=== PATIENT | male | born 1960 | race Caucasian/White ===

== ENCOUNTER → 2016-06-26 | Outpatient (CLI) | payer BC ==
[~2016-06-26] MED LIST: Iopamidol 755 MG/ML 500 ML Multipack Bottle IVPUSH STA
--- NOTE | 2016-06-26 11:17 | CT ---
CT of the abdomen and pelvis with and without contrast. HISTORY: Pain TECHNIQUE: Axial CT images were obtained of the abdomen and pelvis without and following the adminis tration of 50 mL of Isovue-370. Coronal and sagittal reconstructions obtained. FINDINGS: The lung bases are clear, no pleural effusion. Coronary artery calcifications are noted. There is mild to moderate fatty infiltration of the liver. There is stable nodular thickening of the adrenal glands bilaterally. The spleen and pancreas appear grossly normal. The gallbladder appears normal. There is no bulky retroperitoneal lymphadenopathy. No abdominal ascites. There is a small h iatal hernia. Left nephrectomy changes are noted. No evidence of recurrent malignancy. No obstructive uropathy on the right. There is a punctate nonobstructing stone noted. The large and small bowel are normal in caliber without evidence of obstruction. The appendix appear s normal. Diverticulosis without evidence of diverticulitis. There is no bulky pelvic lymphadenopath y. No free fluid. No free air. The bladder nicole appear diffusely thickened however the bladder is m inimally filled. The visualized osseous structures appear normal. There is a tiny fat-containing ing uinal hernia. IMPRESSION: 1. Left nephrectomy changes without evidence of recurrent or metastatic disease. 2. Stable small adrenal nodules. 3. Mild to moderate fatty infiltration of the liver. 4. Diverticulosis without evidence of diverticulitis. 5. Punctate nonobstructing right renal stone.
== END ==
LOC: MW.DI 08:27
PROVIDERS: ATTEND Urology
DX: C64.9 Malignant neoplasm of unspecified kidney, except renal pelvis (principal); Z90.5 Acquired absence of kidney; E27.8 Other specified disorders of adrenal gland; K76.0 Fatty (change of) liver, not elsewhere classified; K57.90 Diverticulosis of intestine, part unspecified, without perforation or abscess without bleeding; N20.0 Calculus of kidney
CPT/HCPCS: 74178; Q9967

== ENCOUNTER 2016-09-08 09:47 | Day surgery (SDC) | payer BC ==
[~2016-09-08 09:47] MED LIST changes: -Iopamidol 755 MG/ML 500 ML Multipack Bottle IVPUSH STA; +Lactated Ringers 1,000 ML IV SCH; +Midazolam 1 MG/ML 2 ML SDV ONE; +Propofol 200 MG/20 ML SDV ONE; +fentaNYL 100 MCG/2 ML SDV ONE
--- NOTE | 2016-09-08 10:20 | PCM.PREANE ---
Preanesthetic Assessment - Anesthesia/Transfusion/Family Hx Anesthesia History: Prior Anesthesia Without Reaction Family History of Anesthesia Reaction: No Transfusion History: No Prior Transfusion(s) Intubation History: Unknown - Review of Systems General: No Symptoms Pulmonary: No Symptoms Cardiovascular: No Symptoms Gastrointestinal: No symptoms Neurological: No Symptoms Other: Reports: None - Physical Assessment Height: 1.73 m Weight: 105.233 kg ASA Class: 3 Mental Status: Alert & Oriented x3 Airway Class: Mallampati = 2 Dentition: Reports: Edentulous Thyro-Mental Finger Breadths: 3 Mouth Opening Finger Breadths: 3 ROM/Head Extension: Full Lungs: Clear to auscultation, Normal respiratory effort Cardiovascular: Regular Rate, Regular Rhythm - Allergies Allergies/Adverse Reactions: Allergies Allergy/AdvReac Type Severity Reaction Status Date / Time Penicillins Allergy Rash Verified 11/23/15 22:03 - Blood Blood Available: No - Anesthesia Plan Pre-Op Medication Ordered: None - Acknowledgements Anesthesia Type Planned: MAC Pt an Appropriate Candidate for the Planned Anesthesia: Yes Alternatives and Risks of Anesthesia Discussed w Pt/Guardian: Yes Pt/Guardian Understands and Agrees with Anesthesia Plan: Yes PreAnesthesia Questionnaire HEENT History: Reports: Other (See Below) Other HEENT History: no teeth Cardiovascular History: Reports: High Cholesterol, Hypertension, [place], Stents (x4 5 years ago) Gastrointestinal History: Reports: GERD Genitourinary History: Reports: BPH, Prostate Disorder Other Genitourinary History: renal and prostate cancer Musculoskeletal History: Reports: Back Pain, Chronic Neurological History: Reports: Neuropathy, Peripheral Psychiatric History: Reports: Anxiety Endocrine/Metabolic History: Reports: Diabetes, Type II, Obesity/BMI 30+ Oncologic (Cancer) History: Reports: Prostate, Renal - Infectious Disease History Infectious Disease History: Reports: Chicken Pox, Measles, Mumps - Past Surgical History Head Surgeries/Procedures: Reports: None HEENT Surgical History: Reports: Other (See Below) Other HEENT Surgeries/Procedures: corneal transplant Cardiovascular Surgical History: Reports: Coronary Artery Stent GI Surgical History: Reports: Hernia, Inguinal Male Surgical History: Reports: Nephrectomy Other Male Surgeries/Procedures: left nephrectomy for renal cancer - SUBSTANCE USE Smoking Status *Q: Current Every Day Smoker (2 ppd) Days Per Week of Alcohol Use: 1 Number of Drinks Per Day: 12 Total Drinks Per Week: 12 Recreational Drug Use History: Yes Recreational Drug Type: Reports: Marijuana/Hashish Recreational Drug Last Use: last smoked marijuana 09/03/16 - HOME MEDS Home Medications: Home Meds Aspirin [Halfprin] 1 tab PO DAILY 11/23/15 [History] Cyclobenzaprine [Flexeril] 10 mg PO ASDIRECTED PRN 11/23/15 [History] LORazepam 1 tab PO BEDTIME 11/23/15 [History] Losartan/Hydrochlorothiazide [Losartan-HCTZ 100-25 MG] 1 tab PO DAILY 11/23/15 [ History] Rosuvastatin [Crestor] 10 mg PO DAILY 11/23/15 [History] SitaGLIPtin [Januvia] 100 mg PO DAILY 11/23/15 [History] Tamsulosin HCl [Flomax] 0.4 mg PO DAILY 09/03/16 [History] amLODIPine [Norvasc] 5 mg PO DAILY 09/03/16 [History] - CURRENT (IN HOUSE) MEDS Current Meds: Current Medications Lactated Ringer's (Ringers, Lactated) 1,000 mls @ 125 mls/hr IV ASDIRECTED SONU Discontinued Medications Fentanyl (Sublimaze) Confirm Administered Dose 100 mcg .ROUTE .STK-MED ONE Stop: 09/08/16 08:26 Midazolam HCl (Versed 1 Mg/Ml) Confirm Administered Dose 2 mg .ROUTE .STK-MED ONE Stop: 09/08/16 08:27 Propofol (Diprivan 20 Ml) Confirm Administered Dose 200 mg .ROUTE .STK-MED ONE Stop: 09/08/16 08:26
[2016-09-08] MEDS ORDERED: Propofol 200 MG/20 ML SDV ONE (10:39)
--- NOTE | 2016-09-08 11:14 | PCM.OPNOTE ---
- General Post-Op/Procedure Note Date of Surgery/Procedure: 09/08/16 Operative Procedure(s): colonoscopy w snare polypectomy Findings: see dict [id number] Pre Op Diagnosis: scrn colonoscopy Post-Op Diagnosis: Same Anesthesia Technique: Moderate Sedation Primary Surgeon: Harvey Proctor Pathology: 4 small sessile polyp, size 2 mm, at distance 20cm when scope went in; 8 mm sessile polyp at 50 cm when scope went in Complications: None Condition: Good
[2016-09-08 13:00] VITALS: BP 120/79
--- NOTE | 2016-09-08 15:35 | OR ---
SURGEON: Harvey Proctor MD DATE OF PROCEDURE: 09/08/2016 PREOPERATIVE DIAGNOSIS: Screening colonoscopy. POSTOPERATIVE DIAGNOSES: Colon poly and diverticulosis. PROCEDURE PERFORMED: Colonoscopy with snare polypectomy COMPLICATIONS: None. DESCRIPTION OF PROCEDURE: The patient was taken to the endoscopy room. A time out was called, patient identified, and procedure identified. Diprivan was then administrated. Patient went from awake to sleep, hearing doctor talking or door closing is normal. Perineum inspection and digital examination were then performed. A well- lubricated colonoscope was gently inserted through the rectum, advanced past the rectosigmoid junction, the descending colon, splenic flexure, transverse colon, hepatic flexure, ascending colon, arrived to the cecum. Cecum was identified as dictated in the finding. Then the scope was carefully withdrawn while attention was paid to the mucosal surface for any abnormality. Air will be sucked out during the scope withdrawal. At the rectum, retroflexed to examine any rectal diseases, fistula or hemorrhoids. During mucosal examination, abnormality or polyp encountered. Using snare equipment, the abnormality or the polyp was then snared off using electrocautery. The Patient tolerated procedure well. There were no intraoperative complications, and Dr. Proctor was present throughout the whole procedure. FINDINGS: 1. The patient is easily sedated with AIRPLANE PATROL PILOT and Diprivan. The patient is soundly snoring. 2. The patient's bowel prep was average with some stool ball, and some semi- formed liquid stool. Colon is rather straight forward. Cecum indicated by ileocecal fold, one-to-one indentation, appendiceal orifice, and light emittance is not observed. Mucosa examined upon scope pulling out. The patient has quite a lot of polyp and a lot of them are 2 to 3 mm sessile polyp at distance of 20 cm when scope go in, that was removed with both hot snare and cold biopsy forceps, and at distance 50 when the scope go in, there is a slightly larger polyp around like about 8 mm sessile polyp, and removed with snare polypectomy distance 50 cm when scope go in. The patient also have quite a lot of diverticulosis. No signs or symptoms of diverticulitis at both the left colon and the right colon. The left colon has more, right colon has less, transverse colon does not have any. The patient does have a mild internal hemorrhoids and no external hemorrhoids. The patient will benefit from repeat colonoscopy 3 years from today or if clinically indicated otherwise, and if the polyp pathology indicated otherwise. As always, thank you for the kind referral. NANDINI / STEFFANIE /[id number]
== END 2016-09-08 11:50 | disposition home or self-care (01) ==
LOC: MW.SDS 09:47
PROVIDERS: ATTEND Surgery
PROC: 0DBE8ZX Excision of Large Intestine, Via Natural or Artificial Opening Endoscopic, Diagnostic (ICD-10-PCS; principal; 2016-09-08)
PROC: 0DBE8ZX Excision of Large Intestine, Via Natural or Artificial Opening Endoscopic, Diagnostic (ICD-10-PCS; 2016-09-08)
PROC: 0DBE8ZX Excision of Large Intestine, Via Natural or Artificial Opening Endoscopic, Diagnostic (ICD-10-PCS; 2016-09-08)
DX: Z12.11 Encounter for screening for malignant neoplasm of colon (principal); D12.6 Benign neoplasm of colon, unspecified; K63.5 Polyp of colon; K57.30 Diverticulosis of large intestine without perforation or abscess without bleeding; K64.8 Other hemorrhoids; Z88.0 Allergy status to penicillin; Z79.82 Long term (current) use of aspirin; Z79.899 Other long term (current) drug therapy; I25.2 Old myocardial infarction; F17.210 Nicotine dependence, cigarettes, uncomplicated
CPT/HCPCS: 45380; 45384; 45385; 88305; J2250; J3010; J7120; 00810; J2704

== ENCOUNTER 2021-06-24 22:06 | Inpatient (IN) | payer SELFPAY ==
[2021-06-24] MEDS ORDERED: Ondansetron 4 MG/2 ML SDV IVPUSH ONE (22:27)
[2021-06-24] MEDS ORDERED: hydrALAZINE 20 MG/ML SDV IVPUSH ONE (22:27)
[2021-06-24] MEDS ORDERED: cefTRIAXone 1 GM in Sodium Chloride 0.9% 50 ML IV ONE (23:15)
[2021-06-24 23:16] LABS: CORONAVIRUS COVID-19 NAA NEGATIVE (NEGATIVE); INFLUENZA A NAA NEGATIVE (NEGATIVE); INFLUENZA B NAA NEGATIVE (NEGATIVE); POTASSIUM,K 2.7 mmol/L (3.5-5.1)
[2021-06-24] MEDS ORDERED: Azithromycin 500 MG in Sodium Chloride 0.9% 250 ML IV ONE (23:16)
[2021-06-24] MEDS ORDERED: Potassium Chloride 20 MEQ Tab.ER PO ONE (23:29)
[2021-06-25] MEDS: Metoprolol Tartrate 50 MG Tab PO SCH ×3 (01:27→20:57)
[2021-06-25] MEDS: Nicotine 14 MG/24 Hr Patch TRDERM PRN (02:05)
[2021-06-25] MEDS: Ondansetron 4 MG/2 ML SDV IVPUSH PRN ×2 (02:06→21:14)
[2021-06-25] MEDS ORDERED: Albuterol/Ipratropium 3.0-0.5 MG/3 ML Neb Soln NEB PRN (07:27)
[2021-06-25] MEDS: amLODIPine 5 MG Tab PO SCH (08:00)
[2021-06-25] MEDS ORDERED: Potassium Chloride 20 MEQ Tab.ER PO ONE ×2 (08:30→17:00)
[2021-06-25] MEDS ORDERED: Glucagon,Human Recombinant 1 MG Vial IM PRN (09:51)
[2021-06-25] MEDS ORDERED: 50% Dextrose in Water 50 ML Syringe IVPUSH PRN (09:51)
[2021-06-25] MEDS ORDERED: Lactated Ringers 1,000 ML IV ONE (10:02)
[2021-06-25] MEDS ORDERED: Rosuvastatin 10 MG Tab PO SCH (11:30)
[2021-06-25] MEDS ORDERED: Albuterol 8 GM Inhaler INH PRN (11:30)
[2021-06-25] MEDS ORDERED: Labetalol 100 MG/20 ML MDV IVPUSH ONE (11:35)
[2021-06-25] MEDS: Lactated Ringers 1,000 ML IV SCH ×2 (11:35→20:59)
[2021-06-25] MEDS: LORazepam 1 MG Tab PO PRN ×2 (11:44→23:02)
[2021-06-25] MEDS: FLUoxetine 20 MG Cap PO SCH (12:05)
[2021-06-25] MEDS ORDERED: Losartan 50 MG Tab PO SCH (12:45)
[2021-06-25] MEDS: Insulin Aspart 100 Units/ML 3 ML Pen SUBCUT SCH ×2 (13:10→16:42)
[2021-06-25] MEDS ORDERED: Losartan 50 MG Tab PO ONE (15:13)
[2021-06-25] MEDS: Labetalol 100 MG/20 ML MDV IVPUSH PRN ×2 (15:23→21:00)
[2021-06-25] MEDS: Ibuprofen 200 MG Tab PO PRN (16:34)
[2021-06-25] MEDS ORDERED: Iopamidol 755 MG/ML 500 ML Multipack Bottle IVPUSH STA (19:56)
[2021-06-25] MEDS: Rosuvastatin 10 MG Tab PO SCH (21:00)
[2021-06-25] MEDS ORDERED: VANCOmycin 1.5 GM/300 ML 300 ML IV SCH (23:00)
[2021-06-25] MEDS: cefTRIAXone 1 GM in Sodium Chloride 0.9% 50 ML IV SCH (23:02)
[2021-06-26] MEDS: Azithromycin 500 MG in Sodium Chloride 0.9% 250 ML IV SCH (02:01)
[2021-06-26] MEDS: Ondansetron 4 MG/2 ML SDV IVPUSH PRN (02:17)
[2021-06-26] MEDS: Labetalol 100 MG/20 ML MDV IVPUSH PRN ×3 (03:49→18:13)
[2021-06-26 07:08] LABS: BLOOD UREA NITROGEN,BUN 21 mg/dL (7.0-18.0); CARBON DIOXIDE,CO2 38.8 mmol/L (21.0-32.0); CHLORIDE,CL 101 mmol/L (98-107); GLUCOSE RANDOM 196 mg/dL (74-106); POTASSIUM,K 2.7 mmol/L (3.5-5.1); SODIUM,NA 147 mmol/L (136-148)
[2021-06-26] MEDS: Insulin Aspart 100 Units/ML 3 ML Pen SUBCUT SCH ×3 (07:29→17:42)
[2021-06-26] MEDS: Losartan 50 MG Tab PO SCH (08:40)
[2021-06-26] MEDS: FLUoxetine 20 MG Cap PO SCH (08:41)
[2021-06-26] MEDS: Metoprolol Tartrate 50 MG Tab PO SCH (08:41)
[2021-06-26] MEDS: amLODIPine 5 MG Tab PO SCH (08:41)
[2021-06-26] MEDS ORDERED: LORazepam 1 MG Tab PO ONE (09:45)
[2021-06-26] MEDS: Pantoprazole 40 MG Tab.CR PO SCH (10:11)
[2021-06-26] MEDS: Lactated Ringers 1,000 ML IV SCH ×3 (10:12→20:43)
[2021-06-26] MEDS: Nicotine 14 MG/24 Hr Patch TRDERM PRN (10:34)
[2021-06-26] MEDS ORDERED: Magnesium Sulfate/Water 2 GM in Premix Bag 1 BAG IV ONE (11:24)
[2021-06-26] MEDS: Potassium Chloride 20 MEQ Tab.ER PO SCH ×2 (11:48→13:58)
[2021-06-26] MEDS: Ibuprofen 200 MG Tab PO PRN ×2 (12:00→17:48)
[2021-06-26] MEDS: Enoxaparin 40 MG/0.4 ML Syringe SUBCUT SCH (13:57)
[2021-06-26] MEDS ORDERED: hydrALAZINE 10 MG Tab PO PRN (18:28)
[2021-06-26 18:34] LABS: POTASSIUM,K 3.4 mmol/L (3.5-5.1)
[2021-06-26] MEDS: Rosuvastatin 10 MG Tab PO SCH (20:43)
[2021-06-26] MEDS: Metoprolol Tartrate 25 MG Tab PO SCH (20:43)
[2021-06-26] MEDS: cefTRIAXone 1 GM in Sodium Chloride 0.9% 50 ML IV SCH (23:09)
[2021-06-26] MEDS: LORazepam 1 MG Tab PO PRN (23:10)
[2021-06-27] MEDS: Azithromycin 500 MG in Sodium Chloride 0.9% 250 ML IV SCH (00:16)
[2021-06-27] MEDS: Lactated Ringers 1,000 ML IV SCH ×3 (07:00→17:03)
[2021-06-27 07:18] LABS: BLOOD UREA NITROGEN,BUN 20 mg/dL (7.0-18.0); CHLORIDE,CL 99 mmol/L (98-107); GLUCOSE RANDOM 183 mg/dL (74-106); POTASSIUM,K 3.3 mmol/L (3.5-5.1); SODIUM,NA 144 mmol/L (136-148)
[2021-06-27] MEDS: Ibuprofen 200 MG Tab PO PRN ×2 (07:31→12:35)
[2021-06-27 07:36] LABS: HEMOGLOBIN A1C 8.4 %
[2021-06-27] MEDS: Insulin Aspart 100 Units/ML 3 ML Pen SUBCUT SCH ×3 (09:31→17:02)
[2021-06-27] MEDS: Metoprolol Tartrate 25 MG Tab PO SCH ×2 (10:03→20:58)
[2021-06-27] MEDS: FLUoxetine 20 MG Cap PO SCH (10:03)
[2021-06-27] MEDS: amLODIPine 5 MG Tab PO SCH (10:03)
[2021-06-27] MEDS: Pantoprazole 40 MG Tab.CR PO SCH (10:04)
[2021-06-27] MEDS: Losartan 50 MG Tab PO SCH (10:04)
[2021-06-27] MEDS ORDERED: amLODIPine 5 MG Tab PO ONE (11:19)
[2021-06-27] MEDS: hydrALAZINE 10 MG Tab PO SCH ×3 (11:37→23:18)
[2021-06-27] MEDS: VANCOmycin 1.5 GM/300 ML 1.5 GM in Premix Bag 1 BAG IV SCH ×2 (12:06→23:56)
[2021-06-27] MEDS: Enoxaparin 40 MG/0.4 ML Syringe SUBCUT SCH (12:35)
[2021-06-27] MEDS: Acetaminophen/Butalbital/Caffeine 325-50-40 MG Tab PO PRN (17:02)
[2021-06-27] MEDS: Nicotine 14 MG/24 Hr Patch TRDERM PRN (18:13)
[2021-06-27] MEDS ORDERED: Potassium Chloride 10 MEQ Tab.ER PO ONE (18:14)
[2021-06-27] MEDS: Rosuvastatin 10 MG Tab PO SCH (20:58)
[2021-06-27] MEDS ORDERED: Azithromycin 250 MG Tab PO SCH (22:00)
[2021-06-27] MEDS: cefTRIAXone 1 GM in Sodium Chloride 0.9% 50 ML IV SCH (23:21)
[2021-06-27] MEDS: LORazepam 1 MG Tab PO PRN (23:28)
[2021-06-28] MEDS: Azithromycin 500 MG in Sodium Chloride 0.9% 250 ML IV SCH (01:37)
[2021-06-28] MEDS: Lactated Ringers 1,000 ML IV SCH ×4 (04:10→22:31)
[2021-06-28] MEDS: hydrALAZINE 10 MG Tab PO SCH ×4 (04:30→23:37)
[2021-06-28] MEDS ORDERED: hydrALAZINE 20 MG/ML SDV IVPUSH ONE (05:10)
[2021-06-28 07:29] LABS: BLOOD UREA NITROGEN,BUN 20 mg/dL (7.0-18.0); CARBON DIOXIDE,CO2 33.5 mmol/L (21.0-32.0); CHLORIDE,CL 101 mmol/L (98-107); GLUCOSE RANDOM 125 mg/dL (74-106); SODIUM,NA 143 mmol/L (136-148)
[2021-06-28] MEDS: Insulin Aspart 100 Units/ML 3 ML Pen SUBCUT SCH ×3 (09:32→17:30)
[2021-06-28] MEDS: Metoprolol Tartrate 25 MG Tab PO SCH (09:33)
[2021-06-28] MEDS: FLUoxetine 20 MG Cap PO SCH (09:33)
[2021-06-28] MEDS: Ibuprofen 200 MG Tab PO PRN ×2 (09:33→22:40)
[2021-06-28] MEDS: amLODIPine 5 MG Tab PO SCH (09:33)
[2021-06-28] MEDS: Pantoprazole 40 MG Tab.CR PO SCH (09:34)
[2021-06-28] MEDS: Losartan 50 MG Tab PO SCH (09:34)
[2021-06-28] MEDS: VANCOmycin 1.5 GM/300 ML 1.5 GM in Premix Bag 1 BAG IV SCH (11:22)
[2021-06-28] MEDS: LORazepam 1 MG Tab PO PRN ×2 (11:41→22:30)
[2021-06-28] MEDS: Enoxaparin 40 MG/0.4 ML Syringe SUBCUT SCH (12:20)
[2021-06-28] MEDS ORDERED: Magnesium Sulfate/Water 2 GM in Premix Bag 1 BAG IV ONE (12:43)
[2021-06-28] MEDS ORDERED: Potassium Chloride 10 MEQ Tab.ER PO ONE (12:55)
[2021-06-28] MEDS ORDERED: Potassium Chloride 20 MEQ Tab.ER PO ONE (16:00)
[2021-06-28] MEDS: Metoprolol Tartrate 50 MG Tab PO SCH (20:22)
[2021-06-28] MEDS: Rosuvastatin 10 MG Tab PO SCH (20:22)
[2021-06-28] MEDS: Acetaminophen/Butalbital/Caffeine 325-50-40 MG Tab PO PRN (20:23)
[2021-06-28] MEDS: cefTRIAXone 1 GM in Sodium Chloride 0.9% 50 ML IV SCH (22:31)
[2021-06-28] MEDS ORDERED: Potassium Chloride 10% 20 MEQ/15 ML Soln 30 ML UD Cup PO ONE (23:13)
[2021-06-28] MEDS ORDERED: VANCOmycin 1.5 GM/300 ML 1.5 GM in Premix Bag 1 BAG IV SCH ×4 (23:45)
[2021-06-29] MEDS ORDERED: VANCOmycin 1.5 GM/300 ML 1.5 GM in Premix Bag 1 BAG IV SCH ×2
[2021-06-29] MEDS: hydrALAZINE 20 MG/ML SDV IVPUSH PRN ×2 (01:39→12:24)
[2021-06-29] MEDS: Azithromycin 500 MG in Sodium Chloride 0.9% 250 ML IV SCH (03:12)
[2021-06-29] MEDS: Lactated Ringers 1,000 ML IV SCH ×2 (03:15→20:19)
[2021-06-29] MEDS: VANCOmycin 1.5 GM/300 ML 1.5 GM in Premix Bag 1 BAG IV SCH ×3 (03:17→16:27)
[2021-06-29] MEDS: hydrALAZINE 10 MG Tab PO SCH ×4 (05:33→21:21)
[2021-06-29 07:05] LABS: BLOOD UREA NITROGEN,BUN 21 mg/dL (7.0-18.0); CARBON DIOXIDE,CO2 34.2 mmol/L (21.0-32.0); CHLORIDE,CL 104 mmol/L (98-107); GLUCOSE RANDOM 179 mg/dL (74-106); POTASSIUM,K 2.9 mmol/L (3.5-5.1); SODIUM,NA 145 mmol/L (136-148)
[2021-06-29] MEDS: Pantoprazole 40 MG Tab.CR PO SCH (08:36)
[2021-06-29] MEDS: FLUoxetine 20 MG Cap PO SCH (08:36)
[2021-06-29] MEDS: amLODIPine 5 MG Tab PO SCH (08:36)
[2021-06-29] MEDS: Metoprolol Tartrate 50 MG Tab PO SCH ×2 (08:36→20:24)
[2021-06-29] MEDS: Losartan 50 MG Tab PO SCH (08:37)
[2021-06-29] MEDS: Insulin Aspart 100 Units/ML 3 ML Pen SUBCUT SCH ×3 (08:39→17:06)
[2021-06-29] MEDS ORDERED: Potassium Chloride 20 MEQ Tab.ER PO ONE (09:00)
[2021-06-29] MEDS ORDERED: Sodium Chloride 0.9% 250 ML IV ONE (09:30)
[2021-06-29] MEDS ORDERED: Potassium Chloride Riders 40 MEQ in Premix Bag 1 BAG IV ONE (09:30)
[2021-06-29] MEDS: Enoxaparin 40 MG/0.4 ML Syringe SUBCUT SCH (12:08)
[2021-06-29] MEDS: cloNIDine 0.1 MG Tab PO SCH (20:24)
[2021-06-29] MEDS: Rosuvastatin 10 MG Tab PO SCH (20:24)
[2021-06-29] MEDS: Nicotine 14 MG/24 Hr Patch TRDERM PRN (20:29)
[2021-06-29] MEDS: Ibuprofen 200 MG Tab PO PRN (21:19)
[2021-06-29] MEDS: LORazepam 1 MG Tab PO PRN (21:20)
[2021-06-29] MEDS: Chlorthalidone 25 MG Tab PO SCH (23:43)
[2021-06-29] MEDS: cefTRIAXone 1 GM in Sodium Chloride 0.9% 50 ML IV SCH (23:45)
[2021-06-30] MEDS: Azithromycin 500 MG in Sodium Chloride 0.9% 250 ML IV SCH (01:05)
[2021-06-30] MEDS: VANCOmycin 1.5 GM/300 ML 1.5 GM in Premix Bag 1 BAG IV SCH (02:07)
[2021-06-30] MEDS: Ibuprofen 200 MG Tab PO PRN ×2 (02:13→07:54)
[2021-06-30] MEDS: hydrALAZINE 10 MG Tab PO SCH ×4 (03:53→22:57)
[2021-06-30 07:07] LABS: BLOOD UREA NITROGEN,BUN 22 mg/dL (7.0-18.0); CARBON DIOXIDE,CO2 34.1 mmol/L (21.0-32.0); CHLORIDE,CL 103 mmol/L (98-107); GLUCOSE RANDOM 125 mg/dL (74-106); POTASSIUM,K 2.7 mmol/L (3.5-5.1); SODIUM,NA 144 mmol/L (136-148)
[2021-06-30] MEDS: Losartan 50 MG Tab PO SCH ×2 (07:57→09:08)
[2021-06-30] MEDS: Chlorthalidone 25 MG Tab PO SCH ×2 (07:58→09:08)
[2021-06-30] MEDS: amLODIPine 5 MG Tab PO SCH ×2 (07:58→09:08)
[2021-06-30] MEDS: cloNIDine 0.1 MG Tab PO SCH ×3 (07:59→20:40)
[2021-06-30] MEDS: Metoprolol Tartrate 50 MG Tab PO SCH ×2 (08:00→20:40)
[2021-06-30] MEDS: Pantoprazole 40 MG Tab.CR PO SCH (08:01)
[2021-06-30] MEDS: FLUoxetine 20 MG Cap PO SCH (08:01)
[2021-06-30] MEDS: Insulin Aspart 100 Units/ML 3 ML Pen SUBCUT SCH ×3 (08:05→17:40)
[2021-06-30] MEDS ORDERED: Potassium Chloride 20 MEQ Tab.ER PO SCH (09:30)
[2021-06-30] MEDS ORDERED: Potassium Chloride Riders 40 MEQ in Premix Bag 1 BAG IV ONE ×2 (09:44→09:49)
[2021-06-30] MEDS ORDERED: cloNIDine 0.1 MG Tab PO ONE (09:52)
[2021-06-30] MEDS ORDERED: Sodium Chloride 0.9% 500 ML IV ONE (10:00)
[2021-06-30] MEDS ORDERED: Potassium Chloride Riders 40 MEQ in Premix Bag 1 BAG IV SCH (10:00)
[2021-06-30] MEDS ORDERED: Spironolactone 25 MG Tab PO ONE (10:00)
[2021-06-30] MEDS: Enoxaparin 40 MG/0.4 ML Syringe SUBCUT SCH (13:27)
[2021-06-30] MEDS ORDERED: Potassium Chloride 40 MEQ in Sodium Chloride 0.9% 500 ML IV ONE (14:00)
[2021-06-30] MEDS: Potassium Chloride 20 MEQ Tab.ER PO SCH ×2 (14:02→17:43)
[2021-06-30] MEDS ORDERED: Potassium Chloride 20 MEQ Tab.ER PO ONE (17:30)
[2021-06-30] MEDS: Nicotine 14 MG/24 Hr Patch TRDERM PRN (20:38)
[2021-06-30] MEDS: Rosuvastatin 10 MG Tab PO SCH (20:40)
[2021-06-30] MEDS: LORazepam 1 MG Tab PO PRN (22:59)
[2021-06-30] MEDS: cefTRIAXone 1 GM in Sodium Chloride 0.9% 50 ML IV SCH (23:00)
[2021-07-01] MEDS: Azithromycin 500 MG in Sodium Chloride 0.9% 250 ML IV SCH (00:33)
[2021-07-01] MEDS: hydrALAZINE 10 MG Tab PO SCH ×4 (04:06→21:41)
[2021-07-01] MEDS: VANCOmycin 1.5 GM/300 ML 1.5 GM in Premix Bag 1 BAG IV SCH (04:27)
[2021-07-01 06:24] LABS: BLOOD UREA NITROGEN,BUN 23 mg/dL (7.0-18.0); CARBON DIOXIDE,CO2 34.5 mmol/L (21.0-32.0); CHLORIDE,CL 103 mmol/L (98-107); GLUCOSE RANDOM 133 mg/dL (74-106); POTASSIUM,K 2.9 mmol/L (3.5-5.1); SODIUM,NA 143 mmol/L (136-148)
[2021-07-01] MEDS: Insulin Aspart 100 Units/ML 3 ML Pen SUBCUT SCH ×3 (07:47→17:23)
[2021-07-01] MEDS ORDERED: Potassium Chloride 20 MEQ Tab.ER PO ONE ×2 (08:48→18:06)
[2021-07-01] MEDS ORDERED: Spironolactone 25 MG Tab PO SCH (09:00)
[2021-07-01] MEDS: cloNIDine 0.1 MG Tab PO SCH ×2 (09:38→20:26)
[2021-07-01] MEDS: Pantoprazole 40 MG Tab.CR PO SCH (09:39)
[2021-07-01] MEDS: Losartan 50 MG Tab PO SCH (09:39)
[2021-07-01] MEDS: Metoprolol Tartrate 50 MG Tab PO SCH ×2 (09:39→20:26)
[2021-07-01] MEDS: amLODIPine 5 MG Tab PO SCH (09:40)
[2021-07-01] MEDS: FLUoxetine 20 MG Cap PO SCH (09:40)
[2021-07-01] MEDS: Chlorthalidone 25 MG Tab PO SCH (09:40)
[2021-07-01] MEDS ORDERED: Potassium Chloride 20 MEQ Tab.ER PO SCH (12:00)
[2021-07-01] MEDS ORDERED: Spironolactone 25 MG Tab PO ONE (12:35)
[2021-07-01] MEDS ORDERED: Metoprolol Tartrate 50 MG Tab PO ONE (12:36)
[2021-07-01] MEDS ORDERED: Chlorthalidone 25 MG Tab PO ONE (15:23)
[2021-07-01] MEDS: Acetaminophen/Butalbital/Caffeine 325-50-40 MG Tab PO PRN (16:43)
[2021-07-01] MEDS: Rosuvastatin 10 MG Tab PO SCH (20:25)
[2021-07-01] MEDS: Nicotine 14 MG/24 Hr Patch TRDERM PRN (20:27)
[2021-07-01] MEDS: LORazepam 1 MG Tab PO PRN (21:41)
[2021-07-02] MEDS: hydrALAZINE 10 MG Tab PO SCH (03:55)
[2021-07-02] MEDS: Acetaminophen/Butalbital/Caffeine 325-50-40 MG Tab PO PRN (03:55)
[2021-07-02 06:27] LABS: BLOOD UREA NITROGEN,BUN 30 mg/dL (7.0-18.0); CARBON DIOXIDE,CO2 33.3 mmol/L (21.0-32.0); CHLORIDE,CL 98 mmol/L (98-107); GLUCOSE RANDOM 121 mg/dL (74-106); POTASSIUM,K 2.8 mmol/L (3.5-5.1); SODIUM,NA 140 mmol/L (136-148)
[2021-07-02] MEDS: Insulin Aspart 100 Units/ML 3 ML Pen SUBCUT SCH ×3 (06:44→18:51)
[2021-07-02] MEDS ORDERED: hydrALAZINE 25 MG Tab PO SCH (07:15)
[2021-07-02] MEDS ORDERED: Potassium Chloride Riders 40 MEQ in Premix Bag 1 BAG IV ONE (08:14)
[2021-07-02] MEDS ORDERED: Calcium Carbonate 500 MG Tab.Chew PO PRN (08:16)
[2021-07-02] MEDS: Potassium Chloride 20 MEQ Tab.ER PO SCH (08:31)
[2021-07-02] MEDS: Pantoprazole 40 MG Tab.CR PO SCH (08:31)
[2021-07-02] MEDS: cloNIDine 0.1 MG Tab PO SCH ×3 (08:32→20:22)
[2021-07-02] MEDS: Chlorthalidone 25 MG Tab PO SCH (08:33)
[2021-07-02] MEDS: Metoprolol Tartrate 50 MG Tab PO SCH ×2 (08:33→20:21)
[2021-07-02] MEDS: Losartan 50 MG Tab PO SCH (08:33)
[2021-07-02] MEDS: Spironolactone 25 MG Tab PO SCH (08:34)
[2021-07-02] MEDS: FLUoxetine 20 MG Cap PO SCH (08:35)
[2021-07-02] MEDS: amLODIPine 5 MG Tab PO SCH ×2 (08:35→11:12)
[2021-07-02] MEDS ORDERED: Chlorthalidone 25 MG Tab PO SCH (09:00)
[2021-07-02] MEDS ORDERED: Sodium Chloride 0.9% 500 ML IV ONE (09:15)
[2021-07-02] MEDS: LORazepam 1 MG Tab PO PRN ×2 (09:50→23:16)
[2021-07-02] MEDS: hydrALAZINE 25 MG Tab PO SCH ×3 (11:13→23:06)
[2021-07-02] MEDS: hydrALAZINE 20 MG/ML SDV IVPUSH PRN (12:32)
[2021-07-02] MEDS: Rosuvastatin 10 MG Tab PO SCH (20:23)
[2021-07-02] MEDS: Nicotine 14 MG/24 Hr Patch TRDERM PRN (20:27)
[2021-07-02] MEDS ORDERED: Potassium Chloride 20 MEQ Tab.ER PO ONE (22:21)
[2021-07-03] MEDS: hydrALAZINE 25 MG Tab PO SCH ×4 (05:19→23:08)
[2021-07-03 05:59] LABS: CARBON DIOXIDE,CO2 33.8 mmol/L (21.0-32.0); POTASSIUM,K 2.5 mmol/L (3.5-5.1)
[2021-07-03] MEDS: Insulin Aspart 100 Units/ML 3 ML Pen SUBCUT SCH ×3 (07:47→17:51)
[2021-07-03] MEDS: FLUoxetine 20 MG Cap PO SCH (08:19)
[2021-07-03] MEDS: Losartan 50 MG Tab PO SCH (08:19)
[2021-07-03] MEDS: Metoprolol Tartrate 50 MG Tab PO SCH ×2 (08:19→20:38)
[2021-07-03] MEDS: cloNIDine 0.1 MG Tab PO SCH ×2 (08:20→20:37)
[2021-07-03] MEDS: Spironolactone 25 MG Tab PO SCH (08:20)
[2021-07-03] MEDS: Chlorthalidone 25 MG Tab PO SCH (08:20)
[2021-07-03] MEDS: amLODIPine 5 MG Tab PO SCH (08:21)
[2021-07-03] MEDS: Pantoprazole 40 MG Tab.CR PO SCH (08:21)
[2021-07-03] MEDS: Potassium Chloride 20 MEQ Tab.ER PO SCH (08:22)
[2021-07-03] MEDS ORDERED: Potassium Chloride 20 MEQ Tab.ER PO ONE ×2 (09:00→17:11)
[2021-07-03] MEDS ORDERED: Potassium Chloride 40 MEQ in Sodium Chloride 0.9% 500 ML IV ONE ×2 (09:00→17:15)
[2021-07-03] MEDS: Diltiazem IR 60 MG Tab PO SCH ×3 (11:33→17:27)
[2021-07-03] MEDS ORDERED: Acetaminophen 500 MG Tab PO ONE (19:42)
[2021-07-03] MEDS: Rosuvastatin 10 MG Tab PO SCH (20:38)
[2021-07-03] MEDS: LORazepam 1 MG Tab PO PRN (20:39)
[2021-07-03] MEDS: Nicotine 14 MG/24 Hr Patch TRDERM PRN (20:39)
[2021-07-04] MEDS: Diltiazem IR 60 MG Tab PO SCH ×2 (00:10→05:15)
[2021-07-04] MEDS ORDERED: Potassium Chloride 20 MEQ Tab.ER PO ONE ×2 (00:13→08:50)
[2021-07-04] MEDS: hydrALAZINE 25 MG Tab PO SCH (05:15)
[2021-07-04 06:14] LABS: BLOOD UREA NITROGEN,BUN 27 mg/dL (7.0-18.0); CARBON DIOXIDE,CO2 33.7 mmol/L (21.0-32.0); CHLORIDE,CL 102 mmol/L (98-107); GLUCOSE RANDOM 151 mg/dL (74-106); POTASSIUM,K 3.2 mmol/L (3.5-5.1); SODIUM,NA 141 mmol/L (136-148)
[2021-07-04] MEDS: Spironolactone 25 MG Tab PO SCH (08:43)
[2021-07-04] MEDS: Losartan 50 MG Tab PO SCH (08:43)
[2021-07-04] MEDS: Pantoprazole 40 MG Tab.CR PO SCH (08:43)
[2021-07-04] MEDS: Chlorthalidone 25 MG Tab PO SCH (08:44)
[2021-07-04] MEDS: cloNIDine 0.1 MG Tab PO SCH (08:44)
[2021-07-04] MEDS: FLUoxetine 20 MG Cap PO SCH (08:44)
[2021-07-04 08:45] VITALS: BP 155/95; PULSE 69
[2021-07-04] MEDS: Metoprolol Tartrate 50 MG Tab PO SCH (08:45)
[2021-07-04] MEDS: Insulin Aspart 100 Units/ML 3 ML Pen SUBCUT SCH (08:47)
[2021-07-04] MEDS ORDERED: Potassium Chloride 20 MEQ Tab.ER PO SCH (09:00)
== END 2021-07-04 10:15 | disposition home or self-care (01) | DRG 304 ==
LOC: MW.ED 22:06 → MW.MS 23:46
PROVIDERS: ADMIT Internal Medicine; ATTEND Internal Medicine
DX: I16.0 Hypertensive urgency (principal); J18.9 Pneumonia, unspecified organism; C78.7 Secondary malignant neoplasm of liver and intrahepatic bile duct; N17.9 Acute kidney failure, unspecified; E26.09 Other primary hyperaldosteronism; E87.6 Hypokalemia; I10 Essential (primary) hypertension; I25.10 Atherosclerotic heart disease of native coronary artery without angina pectoris; F17.210 Nicotine dependence, cigarettes, uncomplicated; E66.9 Obesity, unspecified; R06.2 Wheezing; H54.7 Unspecified visual loss; E78.00 Pure hypercholesterolemia, unspecified; R74.8 Abnormal levels of other serum enzymes; D75.1 Secondary polycythemia; E11.65 Type 2 diabetes mellitus with hyperglycemia; K21.9 Gastro-esophageal reflux disease without esophagitis; N40.0 Benign prostatic hyperplasia without lower urinary tract symptoms; Z91.19 Patient's noncompliance with other medical treatment and regimen; G89.29 Other chronic pain; M54.9 Dorsalgia, unspecified; F41.9 Anxiety disorder, unspecified; F32.A Depression, unspecified; G62.9 Polyneuropathy, unspecified; Z20.822 Contact with and (suspected) exposure to COVID-19; K74.60 Unspecified cirrhosis of liver; K76.0 Fatty (change of) liver, not elsewhere classified; C80.1 Malignant (primary) neoplasm, unspecified; E83.42 Hypomagnesemia; Z68.35 Body mass index [BMI] 35.0-35.9, adult; Z86.19 Personal history of other infectious and parasitic diseases; Z79.82 Long term (current) use of aspirin; Z79.899 Other long term (current) drug therapy; Z88.0 Allergy status to penicillin; Z98.890 Other specified postprocedural states; Z95.5 Presence of coronary angioplasty implant and graft
CPT/HCPCS: 0240U; 36415; 70450; 70450-26; 71045; 71045-26; 71260; 71260-26; 74177; 74177-26; 76705; 76705-26; 76775; 76775-26; 80048; 80053; 80074; 80143; 80202; 81001; 82088; 82384; 82947; 83036; 83735; 83880; 84100; 84132; 84133; 84153; 84244; 84402; 84403; 84484; 85025; 85027; 85610; 86140; 87040; 87077; 87186; 87389; 87651-QW; 87799; 93005; 93010; 93975; 93975-26; 96374; 96375; 99285; 99285-25; A9270-GY; J0360; J0456; J0696; J1650; J1815-GY; J2405; J3370; J3475; J3480; J3490; J7040; J7050; J7120; J7620-GY; Q9967

== ENCOUNTER → 2021-07-08 | Day surgery (SDC) | payer MEDICARE ==
[~2021-07-08] MED LIST changes: +HYDROmorphone 1 MG/ML Syringe IV ONE; -Lactated Ringers 1,000 ML IV SCH; -Midazolam 1 MG/ML 2 ML SDV ONE; -Propofol 200 MG/20 ML SDV ONE; -fentaNYL 100 MCG/2 ML SDV ONE
== END ==
LOC: MW.SDS 13:12
PROVIDERS: ATTEND Anesthesiology
DX: C22.7 Other specified carcinomas of liver (principal)
CPT/HCPCS: 47000

== ENCOUNTER 2021-07-09 10:26 | Observation (INO) | payer MEDICARE ==
[2021-07-09] MEDS ORDERED: HYDROmorphone 1 MG/ML Syringe IVPUSH ONE ×2 (10:41→11:38)
[2021-07-09] MEDS ORDERED: Ondansetron 4 MG/2 ML SDV IVPUSH ONE (10:41)
[2021-07-09] MEDS ORDERED: Sodium Chloride 0.9% 1,000 ML IV ONE ×2 (11:00→23:41)
[2021-07-09] MEDS ORDERED: Iopamidol 755 MG/ML 500 ML Multipack Bottle IVPUSH STA (11:27)
[2021-07-09 11:45] LABS: BLOOD UREA NITROGEN,BUN 30 mg/dL (7.0-18.0); CARBON DIOXIDE,CO2 34.6 mmol/L (21.0-32.0); CHLORIDE,CL 98 mmol/L (98-107); GLUCOSE RANDOM 191 mg/dL (74-106); POTASSIUM,K 2.5 mmol/L (3.5-5.1); SODIUM,NA 143 mmol/L (136-148)
[2021-07-09] MEDS ORDERED: Potassium Chloride Riders 40 MEQ in Premix Bag 1 BAG IV ONE (11:55)
[2021-07-09] MEDS ORDERED: HYDROmorphone 2 MG/ML Syringe IVPUSH PRN (13:36)
[2021-07-09] MEDS ORDERED: Sodium Chloride 0.9% 2.5 ML Syringe FLUSH PRN (13:36)
[2021-07-09] MEDS ORDERED: Sodium Chloride 0.9% 10 ML Syringe FLUSH PRN (13:36)
[2021-07-09] MEDS ORDERED: Ondansetron 4 MG/2 ML SDV IVPUSH PRN (13:36)
[2021-07-09] MEDS ORDERED: Magnesium Sulfate/Water 2 GM in Premix Bag 1 BAG IV ONE (13:39)
[2021-07-09] MEDS ORDERED: Albuterol 8 GM Inhaler INH PRN (14:49)
[2021-07-09] MEDS: hydrALAZINE 25 MG Tab PO SCH ×2 (14:52→19:58)
[2021-07-09] MEDS: LORazepam 1 MG Tab PO PRN ×2 (14:52→20:10)
[2021-07-09] MEDS: NS + KCl 20mEq/L 1,000 ML IV SCH ×2 (17:55→23:18)
[2021-07-09] MEDS ORDERED: Metoprolol Tartrate 50 MG Tab PO ONE (18:12)
[2021-07-09] MEDS: cloNIDine 0.1 MG Tab PO SCH (20:03)
[2021-07-09] MEDS: Nicotine 14 MG/24 Hr Patch TRDERM PRN (20:05)
[2021-07-09] MEDS: Metoprolol Tartrate 50 MG Tab PO SCH (20:21)
[2021-07-09] MEDS ORDERED: NS with KCl 40mEq 1,000 ML IV SCH (22:30)
[2021-07-09] MEDS: Ciprofloxacin in D5W 400 MG in Premix Bag 1 BAG IV SCH ×2 (23:15)
[2021-07-10] MEDS: metroNIDAZOLE/Normal Saline 500 MG in Premix Bag 1 BAG IV SCH ×4 (00:44→17:34)
[2021-07-10] MEDS ORDERED: NS with KCl 40mEq 1,000 ML IV SCH (01:00)
[2021-07-10] MEDS: hydrALAZINE 25 MG Tab PO SCH ×4 (02:16→20:29)
[2021-07-10] MEDS ORDERED: cloNIDine 0.1 MG Tab PO ONE (02:17)
[2021-07-10 04:42] LABS: BLOOD UREA NITROGEN,BUN 29 mg/dL (7.0-18.0); CARBON DIOXIDE,CO2 29.6 mmol/L (21.0-32.0); CHLORIDE,CL 101 mmol/L (98-107); GLUCOSE RANDOM 165 mg/dL (74-106); POTASSIUM,K 3.3 mmol/L (3.5-5.1); SODIUM,NA 141 mmol/L (136-148)
[2021-07-10] MEDS: NS + KCl 20mEq/L 1,000 ML IV SCH ×3 (06:36→18:20)
[2021-07-10] MEDS: Diltiazem 120 MG Cap.CD PO SCH (08:16)
[2021-07-10] MEDS: Metoprolol Tartrate 50 MG Tab PO SCH ×2 (08:17→20:29)
[2021-07-10] MEDS: Spironolactone 25 MG Tab PO SCH (08:17)
[2021-07-10] MEDS: Rosuvastatin 10 MG Tab PO SCH (08:17)
[2021-07-10] MEDS: cloNIDine 0.1 MG Tab PO SCH ×2 (08:18→20:30)
[2021-07-10] MEDS: Losartan 50 MG Tab PO SCH (08:18)
[2021-07-10] MEDS: LORazepam 1 MG Tab PO PRN (08:19)
[2021-07-10] MEDS: Ciprofloxacin in D5W 400 MG in Premix Bag 1 BAG IV SCH ×4 (10:15→22:14)
[2021-07-10 11:05] LABS: BILIRUBIN INDIRECT 1.5
[2021-07-10] MEDS: Ibuprofen 200 MG Tab PO PRN (12:25)
[2021-07-10] MEDS: Nicotine 14 MG/24 Hr Patch TRDERM PRN (22:27)
[2021-07-11] MEDS: NS + KCl 20mEq/L 1,000 ML IV SCH ×2 (01:49→03:55)
[2021-07-11] MEDS: metroNIDAZOLE/Normal Saline 500 MG in Premix Bag 1 BAG IV SCH ×3 (01:51→12:34)
[2021-07-11] MEDS: LORazepam 1 MG Tab PO PRN (01:52)
[2021-07-11] MEDS: hydrALAZINE 25 MG Tab PO SCH ×2 (01:53→09:25)
[2021-07-11] MEDS: Ibuprofen 200 MG Tab PO PRN (03:51)
[2021-07-11 07:24] LABS: BLOOD UREA NITROGEN,BUN 25 mg/dL (7.0-18.0); CARBON DIOXIDE,CO2 31.2 mmol/L (21.0-32.0); CHLORIDE,CL 105 mmol/L (98-107); GLUCOSE RANDOM 154 mg/dL (74-106); POTASSIUM,K 2.7 mmol/L (3.5-5.1); SODIUM,NA 144 mmol/L (136-148)
[2021-07-11] MEDS: cloNIDine 0.1 MG Tab PO SCH (09:26)
[2021-07-11] MEDS: Losartan 50 MG Tab PO SCH (09:26)
[2021-07-11] MEDS: Spironolactone 25 MG Tab PO SCH (09:26)
[2021-07-11] MEDS: Metoprolol Tartrate 50 MG Tab PO SCH (09:26)
[2021-07-11] MEDS: Ciprofloxacin in D5W 400 MG in Premix Bag 1 BAG IV SCH ×2 (09:27)
[2021-07-11] MEDS: Rosuvastatin 10 MG Tab PO SCH (09:27)
[2021-07-11] MEDS: Diltiazem 120 MG Cap.CD PO SCH (09:27)
[2021-07-11] MEDS ORDERED: Potassium Chloride 20 MEQ Tab.ER PO ONE (10:57)
[2021-07-11] MEDS ORDERED: Potassium Chloride Riders 40 MEQ in Premix Bag 1 BAG IV ONE (11:30)
[2021-07-11 14:10] VITALS: BP 139/84; PULSE 117
== END 2021-07-11 14:10 | disposition home or self-care (01) ==
LOC: MW.ED 10:26 → MW.MS 12:19
PROVIDERS: ADMIT Internal Medicine; ATTEND Internal Medicine
DX: G89.18 Other acute postprocedural pain (principal); S36.112A Contusion of liver, initial encounter; I10 Essential (primary) hypertension; I25.10 Atherosclerotic heart disease of native coronary artery without angina pectoris; E11.9 Type 2 diabetes mellitus without complications; E66.9 Obesity, unspecified; D72.829 Elevated white blood cell count, unspecified; E78.00 Pure hypercholesterolemia, unspecified; J44.9 Chronic obstructive pulmonary disease, unspecified; K21.9 Gastro-esophageal reflux disease without esophagitis; F32.A Depression, unspecified; R74.01 Elevation of levels of liver transaminase levels; E87.6 Hypokalemia; E83.42 Hypomagnesemia; C79.89 Secondary malignant neoplasm of other specified sites; Z85.46 Personal history of malignant neoplasm of prostate; E66.09 Other obesity due to excess calories; Z68.37 Body mass index [BMI] 37.0-37.9, adult; Z20.822 Contact with and (suspected) exposure to COVID-19; Z88.0 Allergy status to penicillin; Z79.82 Long term (current) use of aspirin; Z79.899 Other long term (current) drug therapy
CPT/HCPCS: 36415; 74177; 76705; 80053; 80305; 81001; 82140; 82247; 82248; 82947; 83605; 83735; 85025; 85610; 87040; 96374; 96376; 99285; A9270; J0744; J1170; J2405; J3475; J3480; J3490; J7030; Q9967; U0002